=== PATIENT | male | born 1995 | race Two or more races ===

== ENCOUNTER 2019-07-03 19:50 | Emergency (ER) | payer MEDICAID ==
[~2019-07-03] VITALS: Ht 165.1 cm; Wt 27.2 kg
[2019-07-03] MEDS ORDERED: ONDANSETRON HCL 4 MG/2 ML VIAL IV ONE (20:00)
[2019-07-03] MEDS ORDERED: MORPHINE SULFATE 4 MG/ML SYR/VIAL IV ONE ×2 (20:00→21:30)
[2019-07-03] MEDS ORDERED: fentaNYL CITRATE 100 MCG/2 ML VL IV ONE (22:30)
[2019-07-03] MEDS ORDERED: MIDAZOLAM HCL 5 MG/ML-1ML VIAL IV ONE (22:30)
[2019-07-04 01:45] VITALS: BP 131/79
== END 2019-07-04 07:40 | disposition home or self-care (01) ==
LOC: EDBD 19:50 → ER 19:50
DX: S82.832A Other fracture of upper and lower end of left fibula, initial encounter for closed fracture (principal); W51.XXXA Accidental striking against or bumped into by another person, initial encounter; Y93.89 Activity, other specified; Y92.89 Other specified places as the place of occurrence of the external cause; Y99.8 Other external cause status
CPT/HCPCS: 27788; 73600; 73610; 73630; 96374; 96375; 96376; 99152; 99285; J2250; J2270; J2405; J3010